=== PATIENT | female | born 1970 | race Caucasian/White ===

== ENCOUNTER 2016-06-04 12:08 | Emergency (ER) | payer SELFPAY ==
--- NOTE | 2016-06-07 13:18 | ER ---
ADMIT: 06/04/2016 RM/LOC: ER [facility] MR#: [id number] [id number] [place], [place] [id number] [place] [address] [place] [id number] Emergency Room Report SEX: F AGE: 46 : 1970 DATE: 06/04/2016 Primary provider is city call. HISTORY OF PRESENT ILLNESS: The patient is a 46-year-old female, who is hyperventilating, complaining of dizziness, weak, short of breath, and cough for about 4 days. She has also has had some nausea, vomiting, and some diarrhea. She denies any fever, runny nose, sinus pain, sore throat. No headache, no chest pain. REVIEW OF SYSTEMS: Otherwise negative except for mentioned above. She has history of hypertension and depression, and states that she had been feeling so sick that she had not been able to take her Effexor, antidepressant. She smokes a pack and has no allergies. PHYSICAL EXAMINATION: See T-sheet. Vitals within normal limits. Although the rest of the vitals are normal, her blood pressure is quite elevated on admission, 164/10. X-RAY: We did an x-ray which was negative. I did influenza, gave her breathing treatment which she said helped her greatly. ASSESSMENT AND PLAN: She is going to be discharged with diagnosis of viral syndrome, gastroenteritis, cough, hyperventilation and noncompliance medication. Discharged home. For further care, see T-sheet. She was given a prescription for Zofran and an inhaler. Follow up with PCP. GT Churchill / Michoacano Barajas MD / jacquie JOB #: [id number] CC: Michoacano Barajas MD, Attending Physician
== END 2016-06-04 16:00 | disposition home or self-care (01) ==
LOC: ER 12:08
DX: J06.9 Acute upper respiratory infection, unspecified (principal); K52.9 Noninfective gastroenteritis and colitis, unspecified; B34.9 Viral infection, unspecified; R06.4 Hyperventilation; F32.9 Major depressive disorder, single episode, unspecified; F17.210 Nicotine dependence, cigarettes, uncomplicated; Z79.899 Other long term (current) drug therapy